=== PATIENT | female | born 1935 | race African-American/Black ===

== ENCOUNTER 2016-05-21 13:41 | Day surgery (SDC) | payer MEDICARE, OTHER ==
[~2016-05-21] VITALS: Ht 172.7 cm; Wt 90.7 kg
[~2016-05-21 13:41] MED LIST: ACET325T51 PO; ALBU18HF INH; BIOT10004 PO; BISA10SU61 RC; CLOP75TA28 PO; CRAN450C PO; DEXT15LI29 PO; DICL100G8 TOPICAL; DOCU250C2 PO; GABA600T2 PO; HYDR-3605 PO; HYDR-4003 PO; HYDR12.55 PO; ISOS30TA4 PO; LIP40 PO; LISI-571 PO; Lactated Ringer's 1,000 ML IV ONE; MELA1TAB11 PO; METO25TA99 PO; MULT-1018 PO; NITR0.4T6 SL; PANT40TA3 PO; POLY17PO6 PO; POTA8TAB8 PO; PSYL660P17 PO; RIVA20TA PO
[2016-05-21] MEDS ORDERED: fentaNYL-PF 50 mCg/mL 2 mL Inj ONE (13:42)
[2016-05-21] MEDS ORDERED: Propofol 10,000 mCg/mL 20 mL Inj ONE (13:42)
[2016-05-21 15:10] VITALS: BP 146/87; PULSE 64; RESP 14; O2SAT 100
[2016-05-21] MEDS ORDERED: Lactated Ringer's 1,000 ML IV SCH (15:37)
--- NOTE | 2016-05-21 15:37 | PCM.HPANE ---
Patient Data Date of Service: May 21, 2016 (2242) Surgeon Admitting Provider: Attending Provider:Ryan Menendez MD Primary Care Physician:Gold Jean Baptiste MD Other Provider:Robyn Mcfarland Anesthesia Reason for Visit Rectal Bleeding Ht/WT & BMI Height (Feet): 5 Height (Inches): 8 Weight (Kilograms): 90.72 Body Mass Index 30.00 Allergies Coded Allergies: lactose (Verified Allergy, Severe, Diarrhea, 08/10/15) Latex, Natural Rubber (Verified Allergy, Mild, Rash, 08/10/15) Past Anesthesia History Anesthesia History: Denies:: Abnormal Airway, Anesthesia Reactions, Difficult Intubation, Fam Anesthesia Reaction, Fam Malignant Hypertherm Diabetes History Hx Diabetes?: No MRSA MRSA: No Medications Blood Thinner: Pradaxa Last Dose Blood Thinner: May 14, 2016 Reported Medications Rivaroxaban (Xarelto)20 Mg Havtvh34 Mg PO DAILY 05/19/16 Diclofenac Gel (Voltaren Gel)100 Gm Tube1 Applic TOPICAL #1 TUBE 05/19/16 Albuterol Sulfate (Ventolin HFA Inhaler)200 Puff/18 Gm Inhaler2 Puff INH Q4 PRN For Wheezing #1 INHALER Ref 0 05/19/16 Acetaminophen 325 Mg Iaiweo727 Mg PO Q4H PRN For Fever Ref 0 05/19/16 Potassium Chloride ER 8 Meq Tablet8 Meq PO DAILY Ref 0 TAKE WITH FOOD 05/19/[address] 40 Mg Tablet.dr40 Mg PO DAILY Ref 0 05/19/16 Nitroglycerin SL 0.4 Mg Tab.subl0.4 Mg SL 05/19/16 Multivitamin (Multi Vitamin Daily)1 Each Tablet1 Each PO DAILY 30 Days Ref 0 05/19/16 Polyethylene Glycol 3350 (Miralax)17 Gm Powd.pack17 Gm PO 05/19/16 Metoprolol Succinate ER 25 Mg Tab.er.24h25 Mg PO BID Ref 0 05/19/16 Psyllium Husk (Metamucil)3.4 Gram/5.4 Gram Ivjjte566 Gm PO 05/19/16 Melatonin/Pyridoxine (Melatonin 3 mg Tablet)1 Each Tablet1 Each PO DAILY 05/19/16 Lisinopril 5 Mg Tablet5 Mg PO DAILY #30 TABLET Ref 0 05/19/16 Isosorbide MN ER 30 Mg Tab.er.24h30 Mg PO DAILY 05/19/16 HydrOXYzine HCl 10 Mg Cglwvt68 Mg PO 6times daily PRN For Itching Ref 0 05/19/16 Hydrocodone-Acetaminophen 5-325 mg 1 Each Tablet1 Tablet PO Q4H PRN For Pain Ref 0 05/19/16 Hydrochlorothiazide 12.5 Mg Yomere10.5 Mg PO DAILY 30 Days Ref 0 05/19/16 Gabapentin 600 Mg Upxhps540 Mg PO BID Ref 0 05/19/16 Bisacodyl (Dulcolax Rectal)10 Mg Supp.rect10 Mg RC DAILY PRN For Constipation 30 Days Ref 0 05/19/16 Docusate Sodium 250 Mg Udlnmgg929 Mg PO DAILY PRN For Constipation Ref 0 05/19/16 Dextromethorphan HBr (Cough Relief)15 Mg/5 Ml Oigtok98 Ml PO QID 05/19/16 Cranberry Fruit Concentrate (Cranberry)450 Mg Dvxyaww397 Mg PO BID 05/19/16 Clopidogrel 75 Mg Htpmrg32 Mg PO DAILY Ref 0 05/19/16 Biotin 1,000 Mcg Tab.chew2,500 Mcg PO DAILY 05/19/16 Atorvastatin (Lipitor)40 Mg Mormgf69 Mg PO DAILY Ref 0 05/19/16 Discontinued Reported Medications Lisinopril 5 Mg Tablet5 Mg PO DAILY #30 TABLET Ref 0 05/19/16 hydrOXYzine Hcl (HydrOXYzine Hcl)25 Mg Fyxblp25 Mg PO QID PRN For Itching Ref 0 07/24/[address] (Protonix)40 Mg Munorg61 Mg PO QAM Ref 0 07/24/15 Gabapentin 600 Mg Uzsszd956 Mg PO BID Ref 0 07/24/15 Rivaroxaban (Xarelto)20 Mg Liyoqd26 Mg PO QAM 07/24/15 Discontinued Scripts Lisinopril 5 Mg Tablet5 Mg PO DAILY #30 TABLET Prov:Juan Miguel Barrett MD 08/14/15 Metoprolol Succinate ER 25 Mg Tab.er.24h25 Mg PO BID #60 TABLET Prov:Juan Miguel Barrett MD 08/14/15 Atorvastatin Calcium 40 Mg Cmyatl53 Mg PO HS #30 TABLET Prov:Juan Miguel Barrett MD 08/14/15 Clopidogrel 75 Mg Vexetn14 Mg PO DAILY #30 TABLET Prov:Juan Miguel Barrett MD 08/14/15 Amoxicillin 500 Mg Tppeia177 Mg PO TID #14 TABLET Prov:Juan Miguel Barrett MD 08/14/15 Hydrocodone-Acetaminophen 5-325 mg 1 Each Tablet1-2 Tablet PO Q6H PRN For Pain # 20 TABLET Ref 0 Prov:Pedrito Lopez MD 07/24/15 History History of ENT Problems?: No HEENT History: Positive for:: Cataracts (REMOVED BOTH EYES) Denies:: Abnormal Airway Difficult Intubation Hearing Problem Denture Type: Full- Lower Hx of Heart Problems?: Yes Cardiovascular History: Positive for:: Cardiac Surgery (Cardiac stenting, 2011. ) Chest Pain Congestive Heart Failure Edema Heart Murmur Hypertension Irregular Heartbeat (FIB) Hx of Respiratory Problem?: Yes Respiratory History: Positive for:: Asthma Dyspnea Pneumonia Denies:: COPD Chest Surgery Hemoptysis Tuberculosis Hx Neurologic Problems?: Yes Neurological History: Positive for:: Headaches Denies:: CVA Hx of GI Problems?: Yes Gastrointestinal History: Positive for:: Gall Bladder Disease (removed) Gastroesphageal Reflux Heartburn Hepatitis Rectal Bleeding (bright red in color) Denies:: Diverticulitis Hiatal Hernia Hx of Problems?: Yes Genitourinary History: Positive for:: Urinary Tract Infection Denies:: HX of Hemodialysis Kidney Stones HX of Peritoneal Dialysis: No Female Hx: Denies:: Currently Endometriosis Pelvic Inflammatory Hx Musculoskeletal Problems?: Yes Musculoskeletal History: Positive for:: Back Injury Musculoskeletal Trauma (Fall) Hx of Psycho/Social Problems?: No Hx Surgeries?: Yes (Back Surgery for Cauda Equina 05/2015, gallbladder, thyroidectomy) Hx Any Other Health Problems?: Yes Other History: Positive for:: Hospitalization Denies:: Thyroid Disease History Blood Transfusions: Positive for:: Blood Transfusions Denies:: Blood Transfuse Reaction Hx Diabetes: No Hx Alcohol Use: NoHx Substance Use: No Smoking Status: Never Smoker Have You Smoked inLast 12 mo: No Stop/Bang Treated for Sleep Apnea?: No Do You Have a CPAP Machine?: No S-Snoring: Do You Snore Loudly: Yes T-Tired: feel tired, fatigued: No O-Obsered: Observed not breath: No P-Blood Pressure: treated: Yes B- Body Mass Index > 35 kg/m2: No A- Age over 50: Yes N- Neck Large Circumference: No G- Gender Male: No TY Total Score: 3 TY Risk Assessment: Low Risk, <3 Yes Risk Assessment Category Category 1A: Patient has history of documented sleep apnea, and HAS NOT received any narcotic, sedative or anesthesia administration during this stay. Category 1B: Patient has history of documented sleep apnea, and HAS received any narcotic , sedative or anesthesia administration during this stay Category 2: Patient has SUSPECTED Obstructive Sleep Apnea, and HAS received any narcotic , sedative or anesthesia administration during this stay. Category 3: Patient has SUSPECTED Obstructive Sleep Apnea and HAS NOT received narcotic, sedative or anesthesia administration during this stay. Category 4: Outpatient in Procedural Areas with known sleep apnea or who screen positive for High Risk via the STOP/BANG questionnaire. Exam Exam Vital Signs Vital Signs Date Time Temp Pulse Resp B/P Pulse Ox O2 Delivery O2 Flow Rate FiO2 05/21/16 15:10 35.9 64 14 146/87 100 Room Air General Appearance: Alert, Oriented X3 HEENT/AIRWAY: MP 2 (EDENTULOUS) Lungs: Clear to Auscultation Heart: Exam Unremarkable Meds/Labs/Diagnostics Admission Meds Current Medications Lactated Ringer's (Lr) 1,000 ml @ 10 mls/hr Q24H ONCE IV Last administered on 05/21/16t 15:08; Start 05/21/16 at 06:00; Stop 05/22/16 at 05:59 Plan Impression Patient chart reviewed, patient interviewed and anesthestic plan with risks, benefits, and alternatives discussed, and informed consent obtained. NPO Status: >8HRS ASA Physical Status: ASA3 Severe Disease Anesthetic Plan: GA Bene/Risks/Altern/Consents: Yes HP Complete Prior to Induction: Yes Austen Bender MD May 21, 2016 15:37
[2016-05-21] MEDS ORDERED: Ondansetron 2 mg/mL 2 mL Inj IVPUSH PRN (15:40)
[2016-05-21] MEDS ORDERED: MetoCLOpramide 5 mg/mL 2 mL Inj IVPUSH PRN (15:40)
--- NOTE | 2016-05-21 16:28 | PCM.ENDCOL ---
Colonoscopy Date of Service: May 21, 2016 Physician Ryan Menendez MD Pre Procedure Diagnosis: Blood in the stools screening Post Procedure Dx & Findings: Polyp hemorrhoids Procedure Colonoscopy PROCEDURE IN DETAIL: Prep adequate Withdrawal time 11 minutes After unremarkable rectal examination the Olympus video colonoscope was inserted patient's anal canal and was advanced to cecum. Landmarks were identified including the ileocecal valve and appendiceal orifice. Scope was withdrawn systematically. Visualized colonic mucosa showed healthy shiny mucosa with normal healthy-appearing vasculature. In the ascending colon there was a 3 mm polyp which was removed completely using cold snare and the transverse colon, there was another 3 mm polyp which was removed completely using cold snare. In the rectum retroflexion was done which showed hemorrhoids. Anal canal was inspected carefully on the way out and hemorrhoids noted. Impression Polyps 2 cm was completely removable Hemorrhoids Recommendation Repeat colonoscopy in 5 years Resume Plavix today Presedation Assessment Risks and Benefits Informed consent was obtained from the patient after all risks and benefits including but not limited to drug reaction, infection, pain, bleeding, perforation, as well as alternatives were discussed. Patient monitoring Continuous pulse oximetry, cardiac monitoring, blood pressure monitoring, IV access, and oxygen at 2L per nasal cannula. Complications There were no periprocedural complications identified. Post Procedure Plan Post Procedure Recommendations 1. Restrict activities today. 2. Resume normal activities in the morning. 3. Resume medications. 4. Patient informed of normal post procedure side effects as bloating, drowsiness, blood streaking in the stool. 5. average risk CRCS. If colon polyps come back as: -Hyperplastic- can repeat colonoscopy in 10 years -Tubular adenoma- repeat colonoscopy in 5 years -Tubulovillous/villous adenoma- repeat colonoscopy in 3 years -If any dysplasia- return to clinic as soon as possible 6. Please don't hesitate to call me with any questions. Ryan Menendez MD May 21, 2016 16:28
--- NOTE | 2016-05-21 16:31 | PCM.ANEP1 ---
Post Anesthesia Phase 1 PACU Phase 1 Assessment Date of Service: May 21, 2016 Vital Signs see RN record Vital Signs Date Time Temp Pulse Resp B/P Pulse Ox O2 Delivery O2 Flow Rate FiO2 05/21/16 15:10 35.9 64 14 146/87 100 Room Air Anesthetic Administered: GA Level of Alertness: Awake, talking SANTILLAN's with Equal Strength: Yes Pain: No Nausea or Vomiting: No Oxygen Delivery: Room Air Lungs: Clear to Auscultation Dermatome Level: Full Sensation Summary uneventful GA Austen Bender MD May 21, 2016 16:31
--- NOTE | 2016-05-21 16:31 | PCM.ANEP2 ---
Post Anesthesia Evaluation ASA/CMS Post Anesthesia VS in Patient's Normal Range?: Yes Resp Stable; Airway Patent?: Yes CV Function & Hydration Stable: Yes Mental Status Recovered?: Yes Pain control Satisfactory?: Yes N/V Control Satisfactory?: Yes Austen Bender MD May 21, 2016 16:31
[2016-05-21 16:32] VITALS: BP 151/81; PULSE 61; RESP 13; O2SAT 96
[2016-05-21 16:42] VITALS: BP 178/78; PULSE 59; RESP 15; O2SAT 98
[2016-05-21 16:52] VITALS: BP 156/90; PULSE 89; RESP 15; O2SAT 100
--- NOTE | 2016-05-25 10:45 | PATH ---
SURGICAL PATHOLOGY Attending Physician:Ryan Menendez M.D. CASE STATUS: Signed Out PATIENT NAME: PJ RAMOS PID: [id number] : 1935 DATE COLLECTED:05/21/2016 00:00 SPECIMEN: 1: Colon, Biopsy 2: Colon, Biopsy CLINICAL HISTORY: RECTAL BLEEDING 1). ASCENDING COLON POLYP 2). TRANSVERSE COLON POLYP FINAL DIAGNOSIS: 1.ASCENDING COLON POLYP: TUBULAR ADENOMA. 2.TRANSVERSE COLON POLYP: TUBULAR ADENOMA. ICD10 CODE D12.2 GROSS DESCRIPTION: The specimen is received in two formalin filled containers labeled with the patient's name. 1). The specimen is sublabeled "ascending colon polyp" and consists of a 0.4 x 0.3 x 0.3 CM portion of tissue which is entirely submitted in cassette 1A. 2). The specimen is sublabeled "transverse colon polyp" and consists of a 0.3 x 0.3 x 0.3 CM portion of tissue which is entirely submitted in cassette 2A. 05/22/2016 DAC MICRO DESCRIPTION: See diagnosis. ICD-9 CODES: CPT CODES: 1: 49302 2: 98914 Electronically Signed Out Serjio Belle MD [facility] [address], [place] [address] Technical component performed at [facility], [address] [place] [address] Ave[address], [place], [address]
== END 2016-05-21 23:59 | disposition home or self-care (01) ==
LOC: END 13:41
PROVIDERS: ATTEND Internal Medicine
DX: Z12.11 Encounter for screening for malignant neoplasm of colon (principal); D12.2 Benign neoplasm of ascending colon; D12.3 Benign neoplasm of transverse colon; K64.8 Other hemorrhoids; I10 Essential (primary) hypertension; E78.2 Mixed hyperlipidemia; E11.9 Type 2 diabetes mellitus without complications; I48.91 Unspecified atrial fibrillation; M1A.9XX0 Chronic gout, unspecified, without tophus (tophi); I26.99 Other pulmonary embolism without acute cor pulmonale; I25.10 Atherosclerotic heart disease of native coronary artery without angina pectoris; Z95.5 Presence of coronary angioplasty implant and graft; Z79.01 Long term (current) use of anticoagulants; Z79.51 Long term (current) use of inhaled steroids
CPT/HCPCS: 45385; J3010; J7120